=== PATIENT | female | born 1950 | race Hispanic/Latino ===

== ENCOUNTER → 2025-02-04 | Outpatient (CLI) | payer MEDICARE ==
[~2025-02-04] MED LIST: IOHEXOL 350 MG/ML 100ML INFUS..BTL IV ONE; IOHEXOL-350 50ML VIAL IV ONE
--- NOTE | 2025-02-05 11:17 | HMCIMG ---
EXAM: CTA Abdomen and Pelvis With Runoff to the Lower Extremities with Intravenous Contrast. 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 TECHNIQUE: Axial CTA images of the abdomen, pelvis and lower extremities with intravenous contrast in the arterial phase with coronal and sagittal reformatted images generated and reviewed. 3-D reformatted images generated on an independent workstation and also reviewed. CONTRAST: Intravenous contrast was administered without incident. COMPARISON: None provided. FINDINGS: VASCULATURE: Aorta: Focal penetrating atherosclerotic ulcer along the infrarenal abdominal aorta. 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 Atheromatous plaques with mixed calcified and non-calcified components. Celiac trunk: Patent without significant stenosis or occlusion. Superior mesenteric artery: Patent without significant stenosis or occlusion. Inferior mesenteric artery: Patent without significant stenosis or occlusion. Renal arteries: Proximal wall calcifications of bilateral renal arteries without hemodynamically significant stenosis. Right iliac arteries: Patent without significant stenosis or occlusion. Right femoral arteries: Patent without significant stenosis or occlusion. Right popliteal artery: Patent without significant stenosis or occlusion. Right calf arteries: Patent anterior tibial, posterior tibial and peroneal arteries to the level of the distal calf. Left iliac arteries: Patent without significant stenosis or occlusion. Left femoral arteries: Patent without significant stenosis or occlusion. Left popliteal artery: Patent without significant stenosis or occlusion. Left calf arteries: Patent anterior tibial, posterior tibial and peroneal arteries to the level of the distal calf. LOWER THORAX: Bibasilar dependent atelectasis. ABDOMEN: LIVER: Diffuse hepatic steatosis. A 2.1 x 3.0 cm well defined cystic lesion in the caudal lobe, likely representing a simple hepatic cyst. GALLBLADDER AND BILE DUCTS: Gallbladder is surgically absent. No ductal dilatation. PANCREAS: Unremarkable. No ductal dilatation. SPLEEN: Unremarkable. ADRENALS: Unremarkable. KIDNEYS AND URETERS: Kidneys enhance symmetrically. No hydronephrosis. No solid renal mass. STOMACH AND BOWEL: Stable small hiatus hernia. Uncomplicated colonic diverticula. Component of mild constipation. No bowel wall thickening. APPENDIX: Appendix is within normal limits. PELVIS: BLADDER: Suboptimally distended urinary bladder with increased wall thickening. REPRODUCTIVE: 1.6 x 2.3 cm well defined hypodense cystic lesion in the right adnexa. Uterus and ovaries are not visualized, likely surgically absent. PERITONEUM: No free fluid. No free air. LYMPH NODES: No lymphadenopathy is evident. BONES: No acute osseous abnormality. LOWER EXTREMITIES: SOFT TISSUES: Soft tissues are unremarkable. LYMPH NODES: No lymphadenopathy is evident. BONES: No acute osseous abnormality. IMPRESSION: Focal penetrating atherosclerotic ulcer of the infrarenal abdominal aorta. 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 No abdominal aortic aneurysm. Atheromatous plaques with mixed calcified and non-calcified components in the abdominal aorta. Bilateral renal artery proximal calcifications without significant luminal narrowing. Moderate diffuse intimal calcific disease of bilateral calf arteries with preserved perfusion. Diffuse hepatic steatosis with a simple cyst in the caudal lobe of the liver. Suboptimally distended urinary bladder with wall thickening; clinical correlation for cystitis is advised . Right adnexal cyst. Pelvic ultrasound is recommended. /[place]
== END | disposition home or self-care (01) ==
LOC: RAH 10:14
PROVIDERS: ATTEND Family Medicine
DX: I71.02 Dissection of abdominal aorta (principal); K76.0 Fatty (change of) liver, not elsewhere classified; I70.0 Atherosclerosis of aorta; K44.9 Diaphragmatic hernia without obstruction or gangrene; K57.30 Diverticulosis of large intestine without perforation or abscess without bleeding; N32.89 Other specified disorders of bladder; N85.8 Other specified noninflammatory disorders of uterus; K76.89 Other specified diseases of liver; I70.92 Chronic total occlusion of artery of the extremities; I70.1 Atherosclerosis of renal artery; I70.203 Unspecified atherosclerosis of native arteries of extremities, bilateral legs; J98.11 Atelectasis; Z90.49 Acquired absence of other specified parts of digestive tract
CPT/HCPCS: 75635; Q9967 ×2